=== PATIENT | female | born 1965 | race Caucasian/White ===

== ENCOUNTER → 2017-08-05 | Outpatient (REF) | payer OTHER ==
[2017-08-05 16:36] LABS: BASO % 0.4 % (0.0-1.0); EOS % 0.8 % (0.0-3.0); HEMATOCRIT 45.3 % (36.0-47.0); IMMATURE GRANULOCYTE % 0.2 % (0-3.0); LYMPH # 1.6 10^3/uL (1.5-4.5); MEAN CORPUSCULAR HEMOGLOBIN 31.7 pg (27.0-33.0); MEAN CORPUSCULAR HGB CONC 33.1 g/dl (32.0-36.5); MEAN CORPUSCULAR VOLUME 95.8 fl (80.0-96.0); MONO # 0.5 10^3/uL (0.0-0.8); MONO % 8.8 % (0.0-5.0); NEUTROPHILS # 3.1 10^3/uL (1.8-7.7); NEUTROPHILS % 58.8 % (36.0-66.0); PLATELET COUNT, AUTOMATED 260 10^3/uL (150-450); RED BLOOD COUNT 4.73 10^6/uL (4.00-5.40); RED CELL DISTRIBUTION WIDTH 13.8 % (11.5-14.5); WHITE BLOOD COUNT 5.3 10^3/uL (4.0-10.0)
[2017-08-05 16:54] LABS: ALBUMIN 3.8 GM/DL (3.2-5.2); ALBUMIN/GLOBULIN RATIO 0.95 (1.00-1.93); ALKALINE PHOSPHATASE 64 U/L (45-117); ALT/SGPT 18 U/L (12-78); ANION GAP 7 MEQ/L (8-16); AST/SGOT 14 U/L (7-37); BILIRUBIN,TOTAL 0.3 MG/DL (0.2-1.0); BLOOD UREA NITROGEN 18 MG/DL (7-18); CARBON DIOXIDE LEVEL 26 MEQ/L (21-32); CHLORIDE LEVEL 107 MEQ/L (98-107); CREATININE FOR GFR 0.81 MG/DL (0.55-1.30); GLOMERULAR FILTRATION RATE > 60.0 (>51); GLUCOSE, FASTING 88 MG/DL (70-100); RHEUMATOID FACTOR QUANT < 10.0 IU/ML (<15.0); SODIUM LEVEL 140 MEQ/L (136-145); TOTAL PROTEIN 7.8 GM/DL (6.4-8.2); URIC ACID 2.5 MG/DL (2.6-6.0)
[2017-08-05 18:21] LABS: ERYTHROCYTE SEDIMENTATION RATE 32 mm/hr (0-30)
[2017-08-09 00:10] LABS: ANTINUCLEAR ANTIBODIES DIRECT Negative (Negative)
== END ==
LOC: M SFHCLERA 13:52
DX: M25.473 Effusion, unspecified ankle (principal)

== ENCOUNTER → 2018-04-14 | Outpatient (CLI) | payer OTHER ==
--- NOTE | 2018-04-14 12:39 | REP ---
LUMBAR SPINE, FIVE VIEWS: HISTORY: Back pain. There is no acute fracture or subluxation. The L2-3 through L4-5 intervertebral discs are decreased in height, consistent with disc degeneration. Osteophytes are present on L4 and L5. There is narrowing of the L4-5 and L5-S1 facet joints. IMPRESSION: Degeneration change, as described above. Electronically Signed by hSaheen Novoa MD 04/14/2018 12:46 P
--- NOTE | 2018-04-14 12:41 | REP ---
CERVICAL SPINE, NINE VIEWS: HISTORY: Cervicalgia. There is no acute fracture. The C4-5 through C6-7 intervertebral discs are decreased in height consistent with disc degeneration. The neural foramina are patent. There are 2 mm of anterior subluxation of C3 on C4 with flexion. This is not seen in neutral or extension radiographs. There are 2 mm of anterior subluxation of C4 on C5. This is unchanged with flexion and extension. IMPRESSION: Degenerative change, as described above. Electronically Signed by Shaheen Novoa MD 04/14/2018 12:46 P
== END ==
LOC: M LRY 11:08
PROVIDERS: ATTEND Nurse Practitioner Family
DX: M50.21 Other cervical disc displacement, high cervical region (principal); M50.221 Other cervical disc displacement at C4-C5 level

== ENCOUNTER → 2018-12-22 | Outpatient (REF) | payer OTHER | LOC: M SFHCLERA 12-21 18:32 | PROVIDERS: ATTEND Physician Assistant | DX: R19.7 Diarrhea, unspecified (principal) ==

== ENCOUNTER 2019-08-29 14:34 | Emergency (ER) | payer OTHER ==
[~2019-08-29] VITALS: Ht 162.6 cm; Wt 50.3 kg
[2019-08-29 14:35] VITALS: BP 130/73
[2019-08-29] MEDS ORDERED: ZYRTTAB8 PO (14:48)
[2019-08-29] MEDS ORDERED: PANT40TA3 PO (14:48)
[2019-08-29] MEDS ORDERED: LEVO75TA4 PO (14:48)
[2019-08-29] MEDS ORDERED: CYCL5TAB PO (14:48)
[2019-08-29] MEDS ORDERED: SPIR1CAP INH (14:48)
--- NOTE | 2019-08-29 15:30 | REP ---
Clinical: Pain and decreased range of motion. Technique: Internal rotation, external rotation, and Y view of the right shoulder. Findings: No acute fracture dislocation. Small periarticular calcifications or loose bodies are identified measuring up to approximately 5 mm. The subacromial space is normal. No further degenerative changes are identified. Impression: Small periarticular calcified loose bodies. Electronically Signed by Marco Mcguire MD 08/29/2019 03:22 P
== END 2019-08-29 15:56 | disposition home or self-care (01) ==
LOC: M ED 14:34
DX: M25.511 Pain in right shoulder (principal); Z88.2 Allergy status to sulfonamides; Z88.8 Allergy status to other drugs, medicaments and biological substances

== ENCOUNTER → 2019-11-30 | Outpatient (CLI) | payer OTHER ==
[~2019-11-30] MED LIST: CYCL5TAB PO; LEVO75TA4 PO; PANT40TA29 PO; SPIR1CAP INH; ZYRTTAB8 PO
--- NOTE | 2019-12-10 17:30 | REP ---
MRI RIGHT SHOULDER HISTORY: Pain. Limited range of motion. COMPARISON: Plain films 08/29/2019. TECHNIQUE: Multiple sequences obtained in the axial, coronal oblique and sagittal oblique planes. FINDINGS: There is mild ill-defined high signal on T2-weighted images involving the supraspinatus tendon compatible with tendinopathy/tendinitis. There is a 4-mm calcification in the tendon adjacent to the superior humeral head and another is seen at the distal insertion onto the humeral head. There is no rotator cuff tendon tear. There are mild hypertrophic degenerative changes of the acromioclavicular joint. The acromion is type 1. The biceps tendon is within the bicipital groove with no tenosynovitis. There is no Hill-Sachs deformity. The deltoid muscle demonstrates no abnormal signal. There is some fraying of the biceps labral complex. I do not see evidence of a labral tear. There is mild chondromalacia of the glenohumeral joint. There is no abnormal bone marrow signal with no bone marrow edema or occult fracture. There is a normal amount of joint fluid. There is a tiny amount of subacromial fluid. No definite joint body is seen. IMPRESSION: Findings compatible with mild calcific tendinitis. There are two 4-mm calcifications visualized in the distal supraspinatus tendon. No definite joint body. Mild hypertrophic degenerative changes of the acromioclavicular joint with mild subacromial fluid. Fraying of the biceps labral complex without evidence of a labral tear. Mild chondromalacia of the glenohumeral joint. MTDD
== END ==
LOC: M RAD 14:19
PROVIDERS: ATTEND Orthopaedic Surgery Sports Medicine
DX: M94.211 Chondromalacia, right shoulder (principal); M75.31 Calcific tendinitis of right shoulder

== ENCOUNTER → 2020-02-15 | Outpatient (REF) | payer OTHER | LOC: M LAB REF 19:23 | PROVIDERS: ATTEND Physician Assistant | DX: Z11.59 Encounter for screening for other viral diseases (principal) ==

== ENCOUNTER → 2020-09-15 | Outpatient (CLI) | payer OTHER ==
[~2020-09-15] MED LIST changes: +ACET-683 PO; +CALCCAP4 PO; +CYCL-707 PO; +IBUP200C25 PO; +INCR1INH IN; +PROAAER10 INH
== END ==
LOC: M LABSMTC 09:51
PROVIDERS: ATTEND Anesthesiology
DX: Z01.812 Encounter for preprocedural laboratory examination (principal); Z20.822 Contact with and (suspected) exposure to COVID-19

== ENCOUNTER 2020-09-19 06:45 | Day surgery (SDC) | payer OTHER ==
[~2020-09-19] VITALS: Ht 162.6 cm; Wt 51.7 kg
[~2020-09-19 06:45] MED LIST changes: +NS 1,000 ML IV SCH
[2020-09-19] MEDS ORDERED: propofoL 200 MG/20 ML VIAL As Ordered ONE (07:10)
[2020-09-19] MEDS ORDERED: LIDOCAINE 2% 100MG/5ML SDV (FOR ANES.) As Ordered ONE (07:10)
--- NOTE | 2020-09-19 08:25 | ROOR ---
Patient Name: Sherie Lara Procedure Date: 09/19/2020 8:09 AM Date of : 1965 Age: 55 Room: [facility] Gender: Female Note Status: Finalized Procedure: Upper Endoscopy + Biopsies Indications: Dysphagia, Heartburn, Globus sensation Providers: Wander Grider MD Referring MD: ADALGISA MORAN MD Requesting Provider: Medicines: Monitored Anesthesia Care Complications: No immediate complications. Procedure: Pre-Anesthesia Assessment: - The heart rate, respiratory rate, oxygen saturations, blood pressure, adequacy of pulmonary ventilation, and response to care were monitored throughout the procedure. The Endoscope was introduced through the mouth, and advanced to the second part of duodenum. The upper GI endoscopy was accomplished without difficulty. The patient tolerated the procedure well. Findings: The Z-line was variable and was found 35 cm from the incisors. Multiple biopsies were obtained with cold forceps for evaluation to rule out Rodriguez's Esophagus randomly at the gastroesophageal junction. A small hiatal hernia was present. No other significant abnormalities were identified in a careful examination of the stomach. The exam of the duodenum was otherwise normal. Impression: - Z-line variable, 35 cm from the incisors. - Small hiatal hernia. - Multiple biopsies were obtained at the gastroesophageal junction. - The examination was otherwise normal. Recommendation: - Patient has a contact number available for emergencies. The signs and symptoms of potential delayed complications were discussed with the patient. Return to normal activities tomorrow. Written discharge instructions were provided to the patient. - High fiber diet. - Discharge patient to home. - Follow an antireflux regimen. - Continue present medications. - Await pathology results. - Telephone GI clinic for pathology results in 1 week. - Return to referring physician. - The findings and recommendations were discussed with the patient's family. Procedure Code(s): --- Professional --- 35145, Esophagogastroduodenoscopy, flexible, transoral; with biopsy, single or multiple Diagnosis Code(s): --- Professional --- K22.8, Other specified diseases of esophagus K44.9, Diaphragmatic hernia without obstruction or gangrene R13.10, Dysphagia, unspecified R12, Heartburn F45.8, Other somatoform disorders CPT copyright 2019 [employer]. All rights reserved. The codes documented in this report are preliminary and upon basket assembler review may be revised to meet current compliance requirements. Wander Grider MD Wander Grider MD 09/19/2020 8:24:41 AM Electronically signed by Wander Grider MD Number of Addenda: 0 Note Initiated On: 09/19/2020 8:09 AM Estimated Blood Loss: Estimated blood loss: none.
[2020-09-19 08:45] VITALS: BP 143/77
[2020-09-19] MEDS ORDERED: fentaNYL 100 MCG/2 ML INJECTION (J3010) As Ordered ONE (09:19)
== END 2020-09-19 08:48 | disposition home or self-care (01) ==
LOC: M OPP 06:45
PROVIDERS: ATTEND Internal Medicine Gastroenterology
DX: K22.8 Other specified diseases of esophagus (principal); K44.9 Diaphragmatic hernia without obstruction or gangrene; K21.9 Gastro-esophageal reflux disease without esophagitis; J44.9 Chronic obstructive pulmonary disease, unspecified; R13.10 Dysphagia, unspecified; R12 Heartburn; R49.0 Dysphonia; E03.9 Hypothyroidism, unspecified; F17.210 Nicotine dependence, cigarettes, uncomplicated; Z79.899 Other long term (current) drug therapy; Z88.2 Allergy status to sulfonamides; Z88.5 Allergy status to narcotic agent
CPT/HCPCS: 43239; 88305; J3010

== ENCOUNTER 2021-07-17 10:43 | Outpatient (RCR) | payer OTHER ==
[~2021-07-17 10:43] MED LIST changes: -NS 1,000 ML IV SCH
== END 2021-07-28 ==
LOC: M PT 10:43
PROVIDERS: ATTEND Orthopaedic Surgery
DX: M77.11 Lateral epicondylitis, right elbow (principal)

== ENCOUNTER 2021-08-07 12:44 | Outpatient (RCR) | payer OTHER | END 2021-08-27 | LOC: M PT 12:44 | PROVIDERS: ATTEND Orthopaedic Surgery | DX: M77.11 Lateral epicondylitis, right elbow (principal) ==

== ENCOUNTER → 2021-11-06 | Outpatient (CLI) | payer OTHER | LOC: M RAD 07:35 | PROVIDERS: ATTEND Registered Nurse | DX: J98.4 Other disorders of lung (principal); R91.1 Solitary pulmonary nodule ==

== ENCOUNTER 2021-11-15 14:54 | Emergency (ER) | payer OTHER ==
[~2021-11-15] VITALS: Ht 162.6 cm; Wt 54.5 kg
[2021-11-15 16:09] VITALS: BP 126/82
== END 2021-11-15 16:10 | disposition home or self-care (01) ==
LOC: M ED 14:54
DX: S63.611A Unspecified sprain of left index finger, initial encounter (principal); W23.0XXA Caught, crushed, jammed, or pinched between moving objects, initial encounter; Y93.89 Activity, other specified; J44.9 Chronic obstructive pulmonary disease, unspecified; K21.9 Gastro-esophageal reflux disease without esophagitis; E07.9 Disorder of thyroid, unspecified; Z79.890 Hormone replacement therapy; Z79.899 Other long term (current) drug therapy; Z88.2 Allergy status to sulfonamides; Z88.8 Allergy status to other drugs, medicaments and biological substances

== ENCOUNTER → 2023-02-25 | Outpatient (CLI) | payer OTHER | LOC: M RAD 08:34 | PROVIDERS: ATTEND Registered Nurse | DX: Z12.2 Encounter for screening for malignant neoplasm of respiratory organs (principal); F17.200 Nicotine dependence, unspecified, uncomplicated; R91.1 Solitary pulmonary nodule ==

== ENCOUNTER → 2023-07-04 | Outpatient (CLI) | payer OTHER | LOC: M SOG 15:04 | PROVIDERS: ATTEND Physician Assistant | DX: M54.2 Cervicalgia (principal); M25.512 Pain in left shoulder; M47.812 Spondylosis without myelopathy or radiculopathy, cervical region; M43.12 Spondylolisthesis, cervical region; M77.8 Other enthesopathies, not elsewhere classified ==

== ENCOUNTER → 2023-08-06 | Outpatient (CLI) | payer OTHER | LOC: M RAD 14:23 | PROVIDERS: ATTEND Physician Assistant | DX: Z04.2 Encounter for examination and observation following work accident (principal) ==

== ENCOUNTER → 2023-10-07 | Outpatient (REF) | payer OTHER | LOC: M SFHCPLAZ 09:59 | PROVIDERS: ATTEND Nurse Practitioner Family | DX: L30.9 Dermatitis, unspecified (principal) ==

== ENCOUNTER → 2024-04-03 | Outpatient (CLI) | payer OTHER ==
[~2024-04-03] MED LIST changes: -CYCL5TAB PO; +CYCL5TAB4 PO
== END ==
LOC: M RAD 09:04
PROVIDERS: ATTEND Registered Nurse
DX: F17.219 Nicotine dependence, cigarettes, with unspecified nicotine-induced disorders (principal); R91.1 Solitary pulmonary nodule; J98.4 Other disorders of lung